=== PATIENT | male | born 1995 ===

== ENCOUNTER 2021-03-01 22:18 | Emergency (ER) | payer OTHER ==
[2021-03-01] MEDS ORDERED: LIDOCAINE 1% 20 ML MDV ONE (22:45)
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
[2021-03-01 23:53] VITALS: TEMP 98.3
[2021-03-01 23:54] VITALS: BP 116/71; O2SAT 98
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
== END 2021-03-01 23:47 | disposition home or self-care (01) ==
LOC: ER 22:18
PROC: 0JQ10ZZ Repair Face Subcutaneous Tissue and Fascia, Open Approach (ICD-10-PCS; principal; 2021-03-01)
DX: S01.412A Laceration without foreign body of left cheek and temporomandibular area, initial encounter (principal); S01.81XA Laceration without foreign body of other part of head, initial encounter; W50.0XXA Accidental hit or strike by another person, initial encounter
CPT/HCPCS: 70450; 70486; 76377; 99283